=== PATIENT | female | born 1955 | race Caucasian/White ===

== ENCOUNTER 2019-04-06 12:08 | Emergency (ER) | payer SELFPAY ==
[2019-04-06 12:14] VITALS: BP 110/85
--- NOTE | 2019-04-06 12:18 | ER Document Report ---
ED Hand/Wrist Injury - General Chief Complaint: Wrist Pain Stated Complaint: FALL/WRIST PAIN Time Seen by Provider: 04/06/19 12:18 Primary Care Provider: HENRI IRAHETA DO [ACTIVE STAFF] - Follow up in 3-5 days (FOR ORTHOPEDIC FOLLOW UP) - HPI Notes: 63-year-old female to the emergency department with complaints of left wrist and hand pain after she fell just prior to arrival. She states that she was walking her dog when she slipped and fell onto a outstretched hand. She states that she has swelling to the back of the wrist and is very tender. She states any movement increases her pain. She states that the pain radiates up to her left elbow. She denies any other injuries. She did not hit her head. She did not have loss of consciousness. She did take a family members Percocet prior to ar rival which has not started to help with her pain. - Related Data Allergies/Adverse Reactions: No Known Allergies Allergy (Unverified 04/06/19 12:10) Past Medical History - General Information source: Patient, Relative - Social History Smoking Status: Never Smoker Frequency of alcohol use: None Drug Abuse: None Family History: Reviewed & Not Pertinent Review of Systems - Review of Systems Constitutional: denies: Chills, Fever EENT: No symptoms reported Cardiovascular: denies: Chest pain, Palpitations Respiratory: denies: Cough, Short of breath Gastrointestinal: denies: Abdominal pain, Diarrhea, Nausea, Vomiting Genitourinary: No symptoms reported Musculoskeletal: See HPI, Joint pain, Joint swelling - Left wrist, hand, elbow pain after fall. denies: Back pain Skin: No symptoms reported Hematologic/Lymphatic: No symptoms reported Neurological/Psychological: No symptoms reported -: Yes All other systems reviewed and negative Physical Exam - Vital signs Vitals: Temp Pulse Resp BP Pulse Ox 98 F 89 18 110/85 97 04/06/19 12:09 04/06/19 12:09 04/06/19 12:04/06/19 12:04/06/19 12:09 Interpretation: Normal - General General appearance: Appears well, Alert In distress: Mild Notes: Patient is guarding the left wrist and has mild pain distress. - HEENT Head: Normocephalic, Atraumatic Eyes: Normal Pupils: PERRL - Respiratory Respiratory status: No respiratory distress Chest status: Nontender Breath sounds: Normal Chest palpation: Normal - Cardiovascular Rhythm: Regular Heart sounds: Normal auscultation Murmur: No - Extremities Elbow: Tender - There is tenderness to palpation over the posterior left elbow with no edema, laceration, deformity, evidence of dislocation. Patient is able to move the left elbow against resistance with 5 out of 5 strength in flexion extension with pain. There is no tenderness to palpation over the left shoulder. Wrist: Tender - There is tenderness to palpation over the left dorsal wrist with noted edema and deformity to the distal radial aspect of the wrist. There is positive snuffbox tenderness on exam. Patient is only able to plant inspector minimally with her hand due to pain she has strength of 3 out of 5 with left hand plant inspector. Right hand plant inspector is 5 out of 5 in strength. Radial pulses are intact and equal. Compartments are soft., Deformity, Ecchymosis, Limited ROM Hand: Tender - There is tenderness to palpation over the left snuff box region and to the base of the thumb. There is no dorsal hand swelling or evidence for laceration. There is no gross deformity. Hip: Normal, Nontender Thigh: Normal, Nontender Knee: Normal, Nontender Ankle: Normal, Nontender Foot: Normal, Nontender - Neurological Neuro grossly intact: Yes Cognition: Normal Orientation: AAOx4 Endy Coma Scale Eye Opening: Spontaneous Endy Coma Scale Verbal: Oriented [place] Coma Scale Motor: Obeys Commands Endy Coma Scale Total: 15 Speech: Normal Motor strength normal: LUE, RUE, LLE, RLE Sensory: Normal - Psychological Associated symptoms: Normal affect, Normal mood - Skin Skin Temperature: Warm Skin Moisture: Dry Skin Color: Normal Course - Re-evaluation Re-evalutation: 04/06/19 13:40 Hand X-Ray 04/06/19 12:18 IMPRESSION: Nondisplaced fracture distal radius. Wrist X-Ray 04/06/19 12:18 IMPRESSION: Nondisplaced fracture distal radius. Elbow X-Ray 04/06/19 12:30 IMPRESSION: Nondisplaced fracture distal radius. Impression: Fall on outstretched hand injury with noted nondisplaced distal radial fracture. Did splint the patient here in the emergency department with the volar splint. We will have her follow with orthopedist early next week. We have placed patient in a sling and have encouraged her to rest, ice, elevate the wrist. Encouraged to keep the splint on without fail. Will write for pain medicine for home use. - Vital Signs Vital signs: Temp Pulse Resp BP Pulse Ox 98 F 89 18 110/85 97 04/06/19 12:04/06/19 12:09 04/06/19 12:09 04/06/19 12:04/06/19 12:09 Procedures - Immobilization Left Wrist Time completed: 13:18 Pre-Proc Neuro Vasc Exam: Normal Immobilizer type: Volar splint Performed by: PCT Post-Proc Neuro Vasc Exam: Normal Alignment checked and good: Yes Discharge - Discharge Clinical Impression: Left radial fracture Qualifiers: Encounter type: initial encounter Radius location: head Fracture type: closed Fracture alignment: nondisplaced Qualified Code(s): S52.125A - Nondisplaced fracture of head of left radius, initial encounter for closed fracture Fall Qualifiers: Encounter type: initial encounter Qualified Code(s): W19.XXXA - Unspecified fall, initial encounter Condition: Stable Disposition: HOME, SELF-CARE Instructions: Fractured Radius ([facility]) Additional Instructions: KEEP WRIST SPLINTED WITHOUT FAIL. TAKE PAIN MEDS PRESCRIBED. KEEP WRIST SPLINTED. MAY PLACE COLD PACK ON THE WRIST THREE TIMES A DAY FOR 20 MINUTES. DO NOT GET SPLINT WET. CALL ORTHOPEDIST ON WEDNESDAY WITHOUT FAIL FOR FOLLOW UP. RETURN IF WORSENING PAIN, FEVERS, COLOR CHANGE, OR ANY OTHER CONCERNS. Referrals: HENRI IRAHETA DO [ACTIVE STAFF] - Follow up in 3-5 days (FOR ORTHOPEDIC FOLLOW UP)
--- NOTE | 2019-04-06 13:02 | RADIOLOGY REPORT (SQ) ---
EXAM DESCRIPTION: HAND LEFT 3 VIEWS; WRIST LEFT 3 VIEWS; ELBOW LEFT AP/LATERAL COMPLETED DATE/TIME: 04/06/2019 12:48 pm REASON FOR STUDY: fall, wrist/hand injury; fall, FOOSH, elbow pain COMPARISON: None. EXAM PARAMETERS: NUMBER OF VIEWS: Seven views. TECHNIQUE: Two views left elbow, three views left wrist, three views left hand. LIMITATIONS: None. FINDINGS: MINERALIZATION: Osteopenia. BONES: Nondisplaced fracture of the distal radial metaphysis. JOINTS: Erosive arthropathy base of 1st metacarpal. SOFT TISSUES: No foreign body. OTHER: No other significant finding. IMPRESSION: Nondisplaced fracture distal radius. TECHNICAL DOCUMENTATION: JOB ID: [id number] [employer]- All Rights Reserved Reading location - IP/workstation name: [email or web address]
--- NOTE | 2019-04-06 13:02 | RADIOLOGY REPORT (SQ) ---
EXAM DESCRIPTION: HAND LEFT 3 VIEWS; WRIST LEFT 3 VIEWS; ELBOW LEFT AP/LATERAL COMPLETED DATE/TIME: 04/06/2019 12:48 pm REASON FOR STUDY: fall, wrist/hand injury; fall, FOOSH, elbow pain COMPARISON: None. EXAM PARAMETERS: NUMBER OF VIEWS: Seven views. TECHNIQUE: Two views left elbow, three views left wrist, three views left hand. LIMITATIONS: None. FINDINGS: MINERALIZATION: Osteopenia. BONES: Nondisplaced fracture of the distal radial metaphysis. JOINTS: Erosive arthropathy base of 1st metacarpal. SOFT TISSUES: No foreign body. OTHER: No other significant finding. IMPRESSION: Nondisplaced fracture distal radius. TECHNICAL DOCUMENTATION: JOB ID: [id number] [employer]- All Rights Reserved Reading location - IP/workstation name: [email or web address]
--- NOTE | 2019-04-06 13:02 | RADIOLOGY REPORT (SQ) ---
EXAM DESCRIPTION: HAND LEFT 3 VIEWS; WRIST LEFT 3 VIEWS; ELBOW LEFT AP/LATERAL COMPLETED DATE/TIME: 04/06/2019 12:48 pm REASON FOR STUDY: fall, wrist/hand injury; fall, FOOSH, elbow pain COMPARISON: None. EXAM PARAMETERS: NUMBER OF VIEWS: Seven views. TECHNIQUE: Two views left elbow, three views left wrist, three views left hand. LIMITATIONS: None. FINDINGS: MINERALIZATION: Osteopenia. BONES: Nondisplaced fracture of the distal radial metaphysis. JOINTS: Erosive arthropathy base of 1st metacarpal. SOFT TISSUES: No foreign body. OTHER: No other significant finding. IMPRESSION: Nondisplaced fracture distal radius. TECHNICAL DOCUMENTATION: JOB ID: [id number] [employer]- All Rights Reserved Reading location - IP/workstation name: [email or web address]
[2019-04-06] MEDS ORDERED: HYDROCODONE/ACETAMINOPHEN 5-325 MG (6 TAB/ER DISP) PO PRN (13:16)
[2019-04-06] MEDS ORDERED: OXYCODONE-ACETAMINOPHEN 5-325 MG TABLET PO ONE (13:28)
== END 2019-04-06 13:40 | disposition home or self-care (01) ==
LOC: ER 12:08
PROC: 2W3DX1Z Immobilization of Left Lower Arm using Splint (ICD-10-PCS; principal; 2019-04-06)
DX: S52.125A Nondisplaced fracture of head of left radius, initial encounter for closed fracture (principal); M25.532 Pain in left wrist; M79.642 Pain in left hand; M25.522 Pain in left elbow; W01.0XXA Fall on same level from slipping, tripping and stumbling without subsequent striking against object, initial encounter; Z79.899 Other long term (current) drug therapy
CPT/HCPCS: 99283

== ENCOUNTER 2019-05-07 18:07 | Observation (INO) | payer SELFPAY ==
[2019-05-07 18:42] LABS: ABSOLUTE EOSINOPHILS # (AUTO) 0.1 10^3/uL (0.0-0.6); ABSOLUTE LYMPHOCYTES (AUTO) 1.5 10^3/uL (0.5-4.7); ABSOLUTE MONOCYTES (AUTO) 0.4 10^3/uL (0.1-1.4); ABSOLUTE NEUT (AUTO) 3.3 10^3/uL (1.7-8.2); BASOPHILS % (AUTO) 0.9 % (0-2); EOSINOPHILS % (AUTO) 1.1 % (0-6); HEMATOCRIT 43.7 % (36.0-47.0); HEMOGLOBIN 14.4 g/dL (12.0-15.5); LYMPHOCYTES % (AUTO) 27.5 % (13-45); MEAN CORPUSCULAR VOLUME 91 fl (80-97); MONOCYTES % (AUTO) 8.3 % (3-13); PLATELET COUNT 310 10^3/uL (150-450); RED BLOOD COUNT 4.81 10^6/uL (3.72-5.28); RED CELL DISTRIBUTION WIDTH 14.7 % (11.5-14.0); SEGMENTED NEUTROPHILS % (AUTO) 62.2 % (42-78); TOTAL CELLS COUNTED % (AUTO) 100 %; WHITE BLOOD COUNT 5.4 10^3/uL (4.0-10.5)
[2019-05-07 18:59] LABS: ALBUMIN 4.3 g/dL (3.5-5.0); ALKALINE PHOSPHATASE 97 U/L (38-126); ANION GAP 8 (5-19); ASPARTATE AMINO TRANSFERASE 214 U/L (14-36); BILIRUBIN,DIRECT 0.1 mg/dL (0.0-0.4); BILIRUBIN,TOTAL 0.5 mg/dL (0.2-1.3); BLOOD UREA NITROGEN 10 mg/dL (7-20); CALCIUM 9.9 mg/dL (8.4-10.2); CARBON DIOXIDE 31 mmol/L (22-30); CHLORIDE 100 mmol/L (98-107); GLUCOSE 101 mg/dL (75-110); POTASSIUM 4.7 mmol/L (3.6-5.0); TOTAL PROTEIN 7.4 g/dL (6.3-8.2)
[2019-05-07] MEDS ORDERED: NORMAL SALINE 1000 ML 1,000 ML IV ONE (20:07)
[2019-05-07] MEDS ORDERED: ONDANSETRON HCL INJ/PF 4 MG/2 ML SDV IV ONE (20:08)
[2019-05-07] MEDS ORDERED: DEXAMETHASONE SOD PHOS INJ 10 MG/1 ML VIAL IV ONE (20:08)
[2019-05-07] MEDS ORDERED: DIPHENHYDRAMINE HCL 50 MG/ML VIAL IV ONE (20:08)
--- NOTE | 2019-05-07 21:02 | ER Document Report ---
ED General - General Chief Complaint: Headache Stated Complaint: HEADACHE, NAUSEA,VOMITING Time Seen by Provider: 05/07/19 19:55 TRAVEL OUTSIDE OF THE [place] IN LAST 30 DAYS: No - HPI Associated symptoms: denies: Fever Notes: This is a 63-year-old female who presents today with a complaint of a gradual onset headache that started yesterday. Patient describes a throbbing headache, frontal. She describes visual are of some stars and flashing lights prior to the onset of her headache. Headache is worse with light and noise exposure. Russell of the symptoms include nausea and vomiting. Patient states she has not been able to keep anything down today. She apparently had a syncopal episode today. She states she only roommate passing her head was hurting her so bad. Family found her on the floor. She denies any chest pain. She denies any fever or chills. She denies any rash. Patient states he typically does not get headaches. He denies any tick bites. She denies any neck pain. Describes her symptoms as moderate to severe. - Related Data Allergies/Adverse Reactions: No Known Allergies Allergy (Unverified 04/06/19 12:10) Past Medical History - Social History Smoking Status: Never Smoker Family History: Reviewed & Not Pertinent Patient has suicidal ideation: No Patient has homicidal ideation: No - Past Medical History Cardiac Medical History: Reports: Hx Hypertension Renal/ Medical History: Denies: Hx Peritoneal Dialysis Review of Systems - Review of Systems Cardiovascular: Syncope. denies: Chest pain, Palpitations Respiratory: denies: Cough Gastrointestinal: Nausea, Vomiting Neurological/Psychological: Headaches. denies: Weakness, Speech impairment, Numbness -: Yes All other systems reviewed and negative Physical Exam - Vital signs Vitals: Temp Resp BP Pulse Ox 97.8 F 18 191/97 H 99 05/07/19 18:25 05/07/19 18:25 05/07/19 18:25 05/07/19 18:25 - General General appearance: Alert In distress: None - Appears uncomfortable, in pain. - HEENT Eyes: Other - Pupils are equally reactive to light bilaterally. - Respiratory Respiratory status: No respiratory distress Chest status: Nontender Breath sounds: Normal Chest palpation: Normal - Cardiovascular Rhythm: Regular Heart sounds: Normal auscultation Murmur: No - Abdominal Inspection: Normal Distension: No distension Bowel sounds: Normal Tenderness: Nontender Organomegaly: No organomegaly - Neurological Neuro grossly intact: Yes Cognition: Normal Orientation: AAOx4 - There is no motor, sensory or cerebellar deficits. Nonfocal neurologic exam. GCS is 15. NIH stroke score is 0. Endy Coma Scale Eye Opening: Spontaneous Endy Coma Scale Verbal: Oriented Endy Coma Scale Motor: Obeys Commands [place] Coma Scale Total: 15 Speech: Normal Motor strength normal: LUE, RUE, LLE, RLE Sensory: Normal - Skin Skin Temperature: Warm Skin Moisture: Dry Skin Color: Normal Course - Re-evaluation Re-evalutation: 05/07/19 21:00 Clinical picture is suggestive of a migraine headache. However, given syncope, elevated blood pressure, I will get a head CT to rule out intracranial bleed or other intracranial process. I believe syncope is likely vasovagal secondary to her pain. We will give her a migraine cocktail with exception of NSAIDs until I get head CT. EKG shows normal sinus rhythm at 74 bpm. Normal axis. Normal intervals. No acute injury pattern. 05/07/19 23:11 Patient reevaluated. She feels much better. Labs and CT reviewed. CT findings abnormal. I discussed CT findings with patient and family. Patient will need to be admitted for further evaluation. Patient's care discussed with Dr. Son. Will admit. - Vital Signs Vital signs: Temp Pulse Resp BP Pulse Ox 97.8 F 14 174/91 H 97 05/07/19 18:25 05/07/19 23:01 05/07/19 23:01 05/07/19 23:01 - Laboratory Result Diagrams: 05/07/19 18:27 05/07/19 18:27 Laboratory results interpreted by me: 05/07/19 05/07/19 18:27 18:27 RDW 14.7 H Carbon Dioxide 31 H AST 214 H Discharge - Discharge Clinical Impression: Abnormal head CT Acute headache Qualifiers: Headache type: unspecified Intractability: not intractable Qualified Code(s): R51 - Headache Syncope Qualifiers: Syncope type: unspecified Qualified Code(s): R55 - Syncope and collapse Condition: Stable Disposition: ADMITTED OBSERVATION Admitting Provider: Lazarus (Hospitalist) Unit Admitted: Medical Floor
[2019-05-07] MEDS: FENTANYL CITRATE INJ/PF 100 MCG/2 ML AMPUL IV PRN ×3 (21:05→23:21)
[2019-05-07] MEDS ORDERED: FENTANYL CITRATE INJ/PF 100 MCG/2 ML AMPUL IV ONE (21:35)
--- NOTE | 2019-05-07 22:10 | RADIOLOGY REPORT (SQ) ---
EXAM DESCRIPTION: CT HEAD WITHOUT IV CONTRAST COMPLETED DATE/TME: 05/07/2019 20:06 CLINICAL HISTORY: 63 years, Female, headache, syncope COMPARISON: EXAM DESCRIPTION: CLINICAL HISTORY: headache, syncope COMPARISON: None Available TECHNIQUE: Contiguous axial CT images of the head were obtained. Coronal and sagittal reconstructions were created from the axial data. This exam was performed according to our departmental dose-optimization program, which includes automated exposure control, adjustment of the mA and/or kV according to patient size and/or use of iterative reconstruction technique. FINDINGS: There is poorly defined decreased attenuation in the right parieto-occipital region involving the deep white matter and subcortical white matter and portions of the cortex. Possibilities include ischemia or neoplasm or inflammatory process and MRI is recommended to include contrast for further evaluation if the clinical picture is unclear. There is also poorly defined decreased attenuation much smaller in volume involving the left occipital lobe deep white matter subcortical white matter and cortex. Poorly defined foci of decreased attenuation elsewhere do not exert significant mass effect on surrounding structures and are likely sequela of prior insult, most likely on the basis of small vessel disease. No other acute abnormality. No acute abnormalities of the bones is seen. IMPRESSION: Findings are most concerning for neoplasm but ischemia or inflammation are certainly also possible and follow-up MRI is recommended for further evaluation if the clinical picture is unclear. TECHNIQUE: Images stored on PACS. All CT scanners at this facility use dose modulation, iterative reconstruction, and/or weight based dosing when appropriate to reduce radiation dose to as low as reasonably achievable (ALARA). [facility]: Dose Right [facility]: CareDose [facility]: Dose Right [facility]: Teradose 4D [facility]: [place] LIMITATIONS: None. FINDINGS: IMPRESSION: TECHNICAL DOCUMENTATION: Quality ID # [id number]: Final reports with documentation of one or more dose reduction techniques (e.g., Automated exposure control, adjustment of the mA and/or kV according to patient size, use of iterative reconstruction technique) copyright 2011 [employer]- All Rights Reserved
--- NOTE | 2019-05-07 22:39 | EKG REPORT ---
SEVERITY:- NORMAL ECG - SINUS RHYTHM : Confirmed by: Katiana Beckwith MD 07-May-2019 22:38:48
[2019-05-07] MEDS ORDERED: MAG HYDROX/AL HYDROX/SIMETH SUSP 30 ML UDCUP PO PRN (23:38)
[2019-05-07] MEDS ORDERED: MAGNESIUM HYDROXIDE SUSP 30 ML UDCUP PO PRN (23:38)
[2019-05-07] MEDS ORDERED: TEMAZEPAM 15 MG CAPSULE PO PRN (23:38)
[2019-05-07] MEDS ORDERED: NALBUPHINE HCL INJ 10 MG/1 ML AMPULE IV PRN (23:43)
[2019-05-07] MEDS ORDERED: ACETAMINOPHEN 325 MG TABLET PO PRN (23:43)
[2019-05-07] MEDS ORDERED: ACETAMINOPHEN 650 MG SUPP.RECT PR PRN (23:43)
[2019-05-07] MEDS ORDERED: PROCHLORPERAZINE EDISYLATE INJ 10 MG/2 ML VIAL IM PRN (23:45)
[2019-05-07] MEDS ORDERED: KETOROLAC TROMETHAMINE INJ/PF 30 MG/1 ML SDV IV PRN (23:51)
[2019-05-08] MEDS ORDERED: NALBUPHINE HCL INJ 10 MG/1 ML AMPULE IV PRN (00:34)
[2019-05-08 00:42] LABS: FREE T3 4.35 pg/mL (2.77-5.27); FREE T4 (FREE THYROXINE) 1.04 ng/dL (0.78-2.19)
[2019-05-08 00:56] LABS: THYROID STIMULATING HORMONE 1.92 uIU/mL (0.47-4.68)
[2019-05-08 01:29] LABS: CREATINE KINASE MB 0.23 ng/mL (<4.55)
[2019-05-08 01:31] LABS: TROPONIN I < 0.012 ng/mL
[2019-05-08] MEDS: FAMOTIDINE 20 MG TABLET PO SCH ×3 (01:33→23:03)
[2019-05-08] MEDS: DEXTROSE 5%-LACTATED RINGERS 1,000 ML IV PRN ×4 (01:33→23:25)
[2019-05-08] MEDS: DEXAMETHASONE SOD PHOS INJ 10 MG/1 ML VIAL IV PRN ×2 (01:33→18:43)
[2019-05-08] MEDS: NALBUPHINE HCL INJ 10 MG/1 ML AMPULE IV PRN ×2 (01:34→06:28)
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
[2019-05-08] MEDS: HEPARIN SOD (PORCINE) 5,000 UNIT/ML 1 ML VIAL SUBCUT SCH ×3 (06:28→23:02)
[2019-05-08 07:15] LABS: CREATINE KINASE < 20 U/L (30-135)
[2019-05-08 07:30] LABS: CREATINE KINASE MB < 0.22 ng/mL (<4.55); TROPONIN I < 0.012 ng/mL
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
[2019-05-08] MEDS: HYDRALAZINE HCL INJ/PF 20 MG/1 ML SDV IV PRN (09:10)
[2019-05-08] MEDS: MORPHINE SULFATE 10 MG/ML INJ IV PRN ×3 (09:20→23:09)
--- NOTE | 2019-05-08 10:45 | RADIOLOGY REPORT (SQ) ---
EXAM DESCRIPTION: MRI HEAD COMBO COMPLETED DATE/TIME: 05/08/2019 10:05 am REASON FOR STUDY: Abnormal CT scan COMPARISON: CT brain 05/07/2019 TECHNIQUE: Multiplanar imaging includes noncontrasted T1, T2, FLAIR, diffusion with ADC map and post gadolinium contrast T1 sequences. Images stored on PACS. CONTRAST TYPE AND DOSE: 15 mL Dotarem. RENAL FUNCTION: Not indicated. ACR Type II contrast agent associated with few, if any, unconfounded cases of NSF LIMITATIONS: None. FINDINGS: ANATOMY: No developmental anomalies. Normal vascular flow voids. Pituitary fossa normal. CSF SPACES: Normal in size and contour. No hemorrhage. CEREBRUM: Abnormal decreased T1 and increased FLAIR/T2 signal is present in the right posterior tempo ral and occipital cortex and subcortical white matter. There is mild local mass effect with sulcal e ffacement. No abnormal contrast enhancement. No restricted diffusion. This finding could reflect e doc related to cortical vein thrombosis. Tumefactive MS is possible. Edema related to posterior re versible encephalopathy is possible although considered unlikely given its asymmetric nature. Tumor/ gliosis is possible although considered less likely given patient's acute neurologic exchange mechanic the last 3 days. These findings were discussed with QUENTIN Butts, 1000 hours 05/08/2019. Remainder of the cerebrum demonstrates few punctate foci of increased FLAIR/T2 signal along perivascu lar spaces over the bifrontal and biparietal convexities on FLAIR images. POSTERIOR FOSSA: No signal alteration. No hemorrhage. No edema, masses, or mass effect. Internal awais tory canals, cerebellopontine angles, mastoids normal. No enhancing lesions. No abnormal enhancement post contrast. DIFFUSION IMAGING: Negative for acute or subacute infarction. ORBITS: No masses. Post left cataract surgery. PARANASAL SINUSES: No fluid levels. Mucosa normal. OTHER: No other significant finding. IMPRESSION: Right posterior temporal/occipital cortical and subcortical white matter signal abnormal ities without altered diffusion. Differential is venous infarct vs tumefactive MS vs asymmetric post erior reversible encephalopathy EVIDENCE OF ACUTE STROKE: Possible atypical venous infarct. COMMENT: Findings discussed with QUENTIN Butts TECHNICAL DOCUMENTATION: JOB ID: [id number] [employer]- All Rights Reserved Reading location - IP/workstation name: [email or web address]
[2019-05-08] MEDS: AMLODIPINE BESYLATE 5 MG TABLET PO SCH (12:19)
[2019-05-08] MEDS: DOCUSATE SODIUM 100 MG CAPSULE PO SCH ×2 (12:20→18:41)
[2019-05-08 15:09] LABS: CREATINE KINASE MB 0.3 ng/mL (<4.55); TROPONIN I 0.016 ng/mL
[2019-05-08] MEDS: HYDROMORPHONE HCL INJ/PF 2 MG/ML AMPULE IV PRN (18:42)
--- NOTE | 2019-05-08 18:45 | PDOC TRANSFER SUMMARY ---
General Admission Date/PCP: 05/07/19 23:36 Resuscitation Status: Full Code - Transfer Diagnosis (1) Abnormal CT scan of head Is this a current diagnosis for this admission?: Yes (2) Frontal headache Is this a current diagnosis for this admission?: Yes (3) Hypertension Is this a current diagnosis for this admission?: Yes (5) Episode of syncope Is this a current diagnosis for this admission?: Yes (6) Coronary artery disease Is this a current diagnosis for this admission?: Yes - Transfer Medications Home Medications: Cholecalciferol (Vitamin D3) [Vitamin D3 1000 Unit Tablet] 1,000 unit PO DAILY 05/08/19 Ferrous Sulfate [Feosol 325 mg Tablet] 325 mg PO DAILY 05/08/19 L.acidoph,Paracasei, B.lactis [Probiotic] 1 cap PO DAILY 05/08/19 Transfer Medications: Current Medications Acetaminophen (Tylenol 325 Mg Tablet) 650 mg PO Q4HP PRN PRN Reason: For headache, pain or fever Stop: 06/06/19 23:42 Acetaminophen (Tylenol 650 Mg Supp) 650 mg MO Q4HP PRN PRN Reason: For headache, pain or fever Stop: 06/06/19 23:42 Al Hydrox/Mg Hydrox/Simethicone (Maalox Plus Susp 30 Udcup) 30 ml PO Q6HP PRN PRN Reason: HEARTBURN Stop: 06/06/19 23:37 Amlodipine Besylate (Norvasc 5 Mg Tablet) 5 mg PO DAILY ELOY Stop: 06/07/19 09:59 Last Admin: 05/08/19 12:19 Dose: 5 mg Documented by: Dexamethasone Sodium Phosphate (Decadron Inj 10 Mg/1 Ml Vial) 5 mg IV Q6HP PRN PRN Reason: FOR HEADACHE Last Admin: 05/08/19 01:33 Dose: 5 mg Documented by: Docusate Sodium (Colace 100 Mg Capsule) 100 mg PO BID ELOY Stop: 06/07/19 09:59 Last Admin: 05/08/19 12:20 Dose: 100 mg Documented by: Famotidine (Pepcid 20 Mg Tablet) 20 mg PO Q12 ELOY Stop: 06/06/19 23:44 Last Admin: 05/08/19 12:20 Dose: 20 mg Documented by: Heparin Sodium (Porcine) (Heparin Inj 5,000 Units/Ml 1 Ml Vial) 5,000 unit SUBCUT Q8 ELOY Stop: 06/07/19 05:59 Last Admin: 05/08/19 14:41 Dose: 5,000 unit Documented by: Hydralazine HCl (Apresoline Inj/Pf 20 Mg/1 Ml Sdv) 10 mg IV Q4HP PRN PRN Reason: Give For Sbp > 160 / Dbp > 90 Stop: 06/07/19 08:53 Last Admin: 05/08/19 09:10 Dose: 10 mg Documented by: Hydromorphone HCl (Dilaudid Inj/Pf 2 Mg/Ml Ampule) 1 mg IV Q6HP PRN PRN Reason: FOR PAIN Stop: 05/15/19 17:30 Dextrose/Lactated Ringer's (D5lr 1000 Ml Iv Soln) 1,000 mls @ 167 mls/hr IV CONTINUOUS PRN PRN Reason: THIS MED IS NOT "PRN" Stop: 06/06/19 23:37 Last Admin: 05/08/19 17:09 Dose: 167 mls/hr Documented by: Magnesium Hydroxide (Milk Of Magnesia 30 Ml Udcup) 30 ml PO DAILYP PRN PRN Reason: FOR CONSTIPATION Stop: 06/06/19 23:37 Morphine Sulfate (Morphine 10 Mg/Ml Inj) 2 mg IV Q4HP PRN PRN Reason: FOR PAIN Stop: 05/15/19 08:50 Last Admin: 05/08/19 14:38 Dose: 2 mg Documented by: Ondansetron HCl (Zofran Inj/Pf 4 Mg/2 Ml Sdv) 4 mg IV Q6HP PRN PRN Reason: FOR NAUSEA/VOMITING Stop: 06/07/19 18:27 Phenytoin Sodium (Dilantin Inj/Pf 100 Mg/2 Ml Sdv) 100 mg IV Q8 ELOY Stop: 06/07/19 21:59 Phenytoin Sodium (Dilantin Inj/Pf 250 Mg/5 Ml Sdv) 1,000 mg IV NOW ONE Stop: 05/08/19 19:16 Prochlorperazine Edisylate (Compazine Inj 10 Mg/2 Ml Vial) 10 mg IM Q6HP PRN PRN Reason: FOR HEADACHE Sodium Chloride (Saline Flush 2.5 Ml Monoject Prefil Syrin) 2.5 ml IV Q8 ELOY Stop: 06/07/19 05:59 Last Admin: 05/08/19 14:39 Dose: 2.5 ml Documented by: Temazepam (Restoril 15 Mg Capsule) 30 mg PO HSP PRN PRN Reason: SLEEP OR INSOMNIA Stop: 05/14/19 23:37 - Allergies Allergies/Adverse Reactions: No Known Allergies Allergy (Unverified 04/06/19 12:10) Hospital Course Hospital Course: 05/08/2019 Patient was admitted last night through the emergency room around 2300 hrs. Patient states that on Wednesday, 1 day ago she developed a headache rather suddenly. He states it is located behind her eyes and goes back to the back of her head. She states it persisted all day Wednesday and Wednesday and that is when she came to the emergency room Wednesday night. Patient also states that she was n auseated and had vomiting on Wednesday and Wednesday as well. She also states that she saw flashing lights which she describes as "fireworks". She denies any nuchal rigidity, denies any recent travels out of the state or out of the country. She denies any recent illnesses such as colds or flus or viruses. He denies any recent fevers, and/or tick bites.. She states that she has pretension and had a cardiac cath done 4 years ago as well that was normal. Does state that she has been told she had "3 small heart attacks past. [place] patient's blood pressure was elevated 191/97 his morning it was still high at 180/87 she has been afebrile this whole time.. CBC is normal showing no leukocytosis, does have elevated liver functions TSH is normal. CT head scan done last night in the emergency was abnormal and recommended MRI. MRI of the brain today with gadolinium is also grossly abnormal showing edema in 2 separate locations, however no obvious neoplasm. Differential would include ischemic etiology, as neoplasm, versus infection. Patient would benefit from a higher level of care where neurology/ neurosurgery is available. Dr. Lerma has graciously agreed to accept the patient on the hospitalist service and consult the appropriate providers. Patient will be maintained on her IV dexamethasone, IV Dilantin, Apresoline as needed, Dilaudid Physical Exam Vital Signs: Temp Pulse Resp BP Pulse Ox 98.3 F 103 H 21 H 171/86 H 95 05/08/19 14:00 05/08/19 14:00 05/08/19 14:00 05/08/19 14:00 05/08/19 14:00 Intake & Output 05/07/19 05/08/19 05/09/19 06:59 06:59 06:59 Intake Total 1000 2000 Output Total 900 Balance 100 2000 Weight 68.7 kg General appearance: PRESENT: mild distress, other - Secondary to headache Neck exam: ABSENT: carotid bruit, JVD, lymphadenopathy, thyromegaly Respiratory exam: PRESENT: clear to auscultation bulmaro. ABSENT: rales, rhonchi, wheezes Cardiovascular exam: PRESENT: RRR. ABSENT: diastolic murmur, rubs, systolic murmur Neurological exam: PRESENT: alert, awake, oriented to person, oriented to place, oriented to time, oriented to situation, CN II-XII grossly intact. ABSENT: motor sensory deficit Psychiatric exam: PRESENT: appropriate affect, normal mood. ABSENT: homicidal ideation, suicidal ideation Results Laboratory Results: 05/07/19 18:27 05/07/19 18:27 05/07/19 05/07/19 05/07/19 18:27 18:27 18:27 WBC 5.4 RBC 4.81 Hgb 14.4 Hct 43.7 MCV 91 MCH 30.0 MCHC 33.0 RDW 14.7 H Plt Count 310 Seg Neutrophils % 62.2 Sodium 139.2 Potassium 4.7 Chloride 100 Carbon Dioxide 31 H Anion Gap 8 BUN 10 Creatinine 0.63 Est GFR ( Amer) > 60 Glucose 101 Calcium 9.9 Magnesium Total Bilirubin 0.5 AST 214 H Alkaline Phosphatase 97 Total Protein 7.4 Albumin 4.3 TSH 1.92 Free T4 1.04 Free T3 pg/mL 4.35 05/08/19 06:40 WBC RBC Hgb Hct MCV MCH MCHC RDW Plt Count Seg Neutrophils % Sodium Potassium Chloride Carbon Dioxide Anion Gap BUN Creatinine Est GFR ( Amer) Glucose Calcium Magnesium 1.8 Total Bilirubin AST Alkaline Phosphatase Total Protein Albumin TSH Free T4 Free T3 pg/mL 05/07/19 05/08/19 05/08/19 18:27 00:36 00:36 Creatine Kinase 24 L CK-MB (CK-2) 0.23 Troponin I < 0.012 < 0.012 05/08/19 05/08/19 05/08/19 06:40 06:40 13:46 Creatine Kinase < 20 L 47 CK-MB (CK-2) < 0.22 Troponin I < 0.012 05/08/19 13:46 Creatine Kinase CK-MB (CK-2) 0.30 Troponin I 0.016 Impressions: Head CT 05/07/19 20:06 IMPRESSION: Findings are most concerning for neoplasm but ischemia or inflammation are certainly also possible and follow-up MRI is recommended for further evaluation if the clinical picture is unclear. TECHNIQUE: Images stored on PACS. All CT scanners at this facility use dose modulation, iterative reconstruction, and/or weight based dosing when appropriate to reduce radiation dose to as low as reasonably achievable (ALARA). [facility]: Dose Right [facility]: CareDose [facility]: Dose Right [facility]: Teradose 4D [facility]: [employer] LIMITATIONS: None. FINDINGS: IMPRESSION: TECHNICAL DOCUMENTATION: Quality ID # [id number]: Final reports with documentation of one or more dose reduction techniques (e.g., Automated exposure control, adjustment of the mA and/or kV according to patient size, use of iterative reconstruction technique) copyright 2011 [employer]- All Rights Reserved Head MRI 05/08/19 00:00 IMPRESSION: Right posterior temporal/occipital cortical and subcortical white matter signal abnormalities without altered diffusion. Differential is venous infarct vs tumefactive MS vs asymmetric posterior reversible encephalopathy EVIDENCE OF ACUTE STROKE: Possible atypical venous infarct. Plan Discharge Plan: Patient has been accepted at [facility] by Dr. Lerma, hospitalist, who will consult neurology.. She is medically stable at this time for transfer. Patient was given a loading dose of Dilantin the thousand milligrams IV and then 100 mg IV every 8 hours. . She will continue her Apresoline IV 4 hours as needed for blood pressure. She was also started on Norvasc 5 mg daily. Patient's blood pressure was tried to be in the range of 160 systolic and any diastolic. Did not want to drop her blood pressure down too low fear of lack of perfusion. patient had no relief from her headache with morphine and therefore Dilaudid was ordered milligram IV every 4 hours as needed. She is stable to go by [facility] ground transport. Patient's , sister, and father have all been spoken to concerning her transfer. They as well as the pat ient are in agreement for transfer Time Spent: Greater than 30 Minutes
[2019-05-08] MEDS ORDERED: PHENYTOIN SODIUM INJ/PF 250 MG/5 ML SDV IV ONE (19:00)
[2019-05-08] MEDS ORDERED: PHENYTOIN SODIUM INJ/PF 100 MG/2 ML SDV IV ONE (19:00)
[2019-05-08] MEDS: PHENYTOIN SODIUM INJ/PF 100 MG/2 ML SDV IV SCH (22:59)
[2019-05-08] MEDS: ONDANSETRON HCL INJ/PF 4 MG/2 ML SDV IV PRN (23:01)
[2019-05-08] MEDS ORDERED: PHENYTOIN SODIUM INJ/PF 250 MG/5 ML SDV ONE (23:19)
[2019-05-09] MEDS: HYDROMORPHONE HCL INJ/PF 2 MG/ML AMPULE IV PRN ×5 (02:12→20:14)
[2019-05-09] MEDS: HEPARIN SOD (PORCINE) 5,000 UNIT/ML 1 ML VIAL SUBCUT SCH ×3 (05:53→21:29)
[2019-05-09] MEDS: PHENYTOIN SODIUM INJ/PF 100 MG/2 ML SDV IV SCH ×3 (05:53→21:29)
[2019-05-09] MEDS: DEXTROSE 5%-LACTATED RINGERS 1,000 ML IV PRN ×2 (07:38→12:30)
[2019-05-09] MEDS: DEXAMETHASONE SOD PHOS INJ 10 MG/1 ML VIAL IV PRN (07:42)
[2019-05-09] MEDS: FAMOTIDINE 20 MG TABLET PO SCH ×2 (10:35→21:25)
[2019-05-09] MEDS: DOCUSATE SODIUM 100 MG CAPSULE PO SCH ×2 (10:36→17:00)
[2019-05-09] MEDS: AMLODIPINE BESYLATE 5 MG TABLET PO SCH (10:36)
[2019-05-09] MEDS: DEXAMETHASONE SOD PHOSPHATE INJ 4 MG/1 ML VIAL IV SCH ×2 (15:38→21:26)
--- NOTE | 2019-05-09 19:24 | PDOC PROGRESS REPORT ---
Subjective Progress Note for:: 05/09/19 Subjective:: The patient is a 63-year-old female with a past medical history of CAD, AR, hypertension, PAD, chronic back pain who was admitted 05/07/2019 for severe headache and subsequently found to have right posterior temporal and occipital cortical and subcu cortical abnormalities; infarct versus tumefactive MS versus asymmetric posterior reversible encephalopathy. Previous provider has arranged for transfer to [facility] with neurology consultation. She is awaiting room assignment/transfer at this time. Patient was seen on morning rounds with multiple family members present. She is found sitting up in bed on room air. She is clearly photophobic and p honophobic. She reports continued frontal headache; relieved by IV medications, however notes that her relief is very short-lived (approximately 30 to 45 minutes of pain relief). She does report nausea and occasional blurred vision but without emesis. She denies fever, chills, chest pain, palpitations, dyspnea, abdominal pain, nausea, vomiting, diarrhea, paresthesias and focal deficits. They have no new questions or concerns at this time. No concerns per nursing. Reason For Visit: HEADACHE,NAUSEA AND VOMITING,SYNCOPAL EPISODE Physical Exam Vital Signs: Temp Pulse Resp BP Pulse Ox 97.7 F 82 15 151/83 H 100 05/09/19 16:44 05/09/19 16:44 05/09/19 03:04 05/09/19 16:44 05/09/19 16:44 Intake & Output 05/08/19 05/09/19 05/10/19 06:59 06:59 06:59 Intake Total 1000 4650 1567 Output Total 900 625 500 Balance 100 4025 1067 Weight 68.7 kg 67.5 kg General appearance: PRESENT: no acute distress, cooperative, well-developed, well-nourished Head exam: PRESENT: atraumatic, normocephalic Eye exam: PRESENT: conjunctiva pink, EOMI, PERRLA. ABSENT: scleral icterus Ear exam: PRESENT: normal external ear exam Mouth exam: PRESENT: moist, tongue midline Neck exam: ABSENT: carotid bruit, JVD, lymphadenopathy, thyromegaly Respiratory exam: PRESENT: clear to auscultation bulmaro, symmetrical, unlabored. ABSENT: rales, rhonchi, wheezes Cardiovascular exam: PRESENT: RRR, +S1, +S2. ABSENT: diastolic murmur, rubs, systolic murmur Pulses: PRESENT: normal dorsalis pedis pul Vascular exam: PRESENT: normal capillary refill GI/Abdominal exam: PRESENT: normal bowel sounds, soft. ABSENT: distended, guarding, mass, organolmegaly, rebound, tenderness Rectal exam: PRESENT: deferred Extremities exam: PRESENT: full ROM. ABSENT: calf tenderness, clubbing, pedal edema Neurological exam: PRESENT: alert, awake, oriented to person, oriented to place, oriented to time, oriented to situation, CN II-XII grossly intact. ABSENT: motor sensory deficit Psychiatric exam: PRESENT: appropriate affect, normal mood. ABSENT: homicidal ideation, suicidal ideation Skin exam: PRESENT: dry, intact, warm. ABSENT: cyanosis, rash Results Laboratory Results: 05/07/19 18:27 05/07/19 18:27 05/07/19 05/08/19 05/08/19 18:27 00:36 00:36 Creatine Kinase 24 L CK-MB (CK-2) 0.23 Troponin I < 0.012 < 0.012 05/08/19 05/08/19 05/08/19 06:40 06:40 13:46 Creatine Kinase < 20 L 47 CK-MB (CK-2) < 0.22 Troponin I < 0.012 05/08/19 13:46 Creatine Kinase CK-MB (CK-2) 0.30 Troponin I 0.016 Impressions: Head CT 05/07/19 20:06 IMPRESSION: Findings are most concerning for neoplasm but ischemia or inflammation are certainly also possible and follow-up MRI is recommended for further evaluation if the clinical picture is unclear. TECHNIQUE: Images stored on PACS. All CT scanners at this facility use dose modulation, iterative reconstruction, and/or weight based dosing when appropriate to reduce radiation dose to as low as reasonably achievable (ALARA). [facility]: Dose Right [facility]: CareDose [facility]: Dose Right [facility]: Teradose 4D [facility]: [employer] LIMITATIONS: None. FINDINGS: IMPRESSION: TECHNICAL DOCUMENTATION: Quality ID # 436: Final reports with documentation of one or more dose reduction techniques (e.g., Automated exposure control, adjustment of the mA and/or kV according to patient size, use of iterative reconstruction technique) copyright 2011 [employer]- All Rights Reserved Head MRI 05/08/19 00:00 IMPRESSION: Right posterior temporal/occipital cortical and subcortical white matter signal abnormalities without altered diffusion. Differential is venous infarct vs tumefactive MS vs asymmetric posterior reversible encephalopathy EVIDENCE OF ACUTE STROKE: Possible atypical venous infarct. Assessment and Plan - Diagnosis (1) Abnormal MRI of head Is this a current diagnosis for this admission?: Yes Plan: MRI revealed right posterior temporal and occipital cortical and subcu cortical abnormalities; infarct versus tumefactive MS versus asymmetric posterior reversible encephalopathy. The previous provider has arranged for transfer to [facility]; currently awaiting bed assignment and transfer. Continue IV Dilantin. Continue analgesics as needed; have increased Dilaudid 2 mg every 3 hours. Continue Tylenol. Antiemetics as needed. Start IV dexamethasone. Nonpharmacological interventions; head of bed elevated, low light, sound, visitor stimulation. Neuro checks every 6 hours. Management of hypertension as below. (2) Frontal headache Is this a current diagnosis for this admission?: Yes Plan: Secondary to #1. Evaluation management as above. (3) Coronary artery disease Is this a current diagnosis for this admission?: Yes Plan: Troponins negative x4. Continue monitor on continuous cardiac telemetry. Holding aspirin secondary to #1. (4) Hypertension Qualifiers: Hypertension type: essential hypertension Qualified Code(s): I10 - Essential (primary) hypertension Is this a current diagnosis for this admission?: Yes Plan: The patient is not on home antihypertensive therapy. Blood pressures remain elevated. Will increase amlodipine to 10 mg daily. Cardiac diet. (5) Episode of syncope Qualifiers: Syncope type: unspecified Qualified Code(s): R55 - Syncope and collapse Is this a current diagnosis for this admission?: Yes Plan: Likely secondary to #1. Evaluation management as above. Fall precautions. - Time Time Spent with patient: 25-34 minutes Medications reviewed and adjusted accordingly: Yes Anticipated discharge: [facility]: when bed available
[2019-05-10] MEDS: HYDROMORPHONE HCL INJ/PF 2 MG/ML AMPULE IV PRN ×7 (00:47→18:59)
[2019-05-10] MEDS: ONDANSETRON HCL INJ/PF 4 MG/2 ML SDV IV PRN (04:12)
[2019-05-10 04:41] LABS: HEMATOCRIT 39.5 % (36.0-47.0); MEAN CORPUSCULAR HEMOGLOBIN 29.9 pg (27.0-33.4); MEAN CORPUSCULAR HGB CONC 32.9 g/dL (32.0-36.0); MEAN CORPUSCULAR VOLUME 91 fl (80-97); PLATELET COUNT 269 10^3/uL (150-450); RED BLOOD COUNT 4.35 10^6/uL (3.72-5.28)
[2019-05-10 05:05] LABS: ANION GAP 9 (5-19); BLOOD UREA NITROGEN 12 mg/dL (7-20); CALCIUM 9.2 mg/dL (8.4-10.2); CARBON DIOXIDE 31 mmol/L (22-30); CHLORIDE 100 mmol/L (98-107); GLUCOSE 142 mg/dL (75-110); POTASSIUM 3.9 mmol/L (3.6-5.0)
[2019-05-10 05:11] LABS: C-REACTIVE PROTEIN < 5.0 mg/L (<10.0)
[2019-05-10 05:18] LABS: ERYTHROCYTE SEDIMENTATION RATE 16 mm/hr (0-30)
[2019-05-10] MEDS: DEXTROSE 5%-LACTATED RINGERS 1,000 ML IV PRN ×2 (06:14→13:28)
[2019-05-10] MEDS: DEXAMETHASONE SOD PHOSPHATE INJ 4 MG/1 ML VIAL IV SCH ×3 (06:15→22:02)
[2019-05-10] MEDS: PHENYTOIN SODIUM INJ/PF 100 MG/2 ML SDV IV SCH ×3 (06:20→22:01)
[2019-05-10] MEDS: HEPARIN SOD (PORCINE) 5,000 UNIT/ML 1 ML VIAL SUBCUT SCH ×3 (06:25→22:00)
[2019-05-10] MEDS ORDERED: FERROUS SULFATE 325 MG TABLET PO SCH (10:00)
[2019-05-10] MEDS ORDERED: (PENDING PHARMACY ID) (L.Acidoph,Paracasei, B.Lactis [Probiotic] 1 CAP) PO SCH (10:00)
[2019-05-10] MEDS ORDERED: AMLODIPINE BESYLATE 5 MG TABLET PO SCH (10:00)
[2019-05-10] MEDS ORDERED: LACTOBACILLUS ACIDOPHILUS 250 MG TAB PO SCH (10:00)
[2019-05-10] MEDS: HYDRALAZINE HCL INJ/PF 20 MG/1 ML SDV IV PRN (10:17)
[2019-05-10] MEDS: FAMOTIDINE 20 MG TABLET PO SCH ×2 (10:20→21:59)
[2019-05-10] MEDS: DOCUSATE SODIUM 100 MG CAPSULE PO SCH ×2 (10:21→18:14)
[2019-05-10] MEDS ORDERED: KETOROLAC TROMETHAMINE INJ/PF 30 MG/1 ML SDV IM ONE (14:30)
[2019-05-10] MEDS ORDERED: LOPERAMIDE HCL 2 MG CAPSULE PO PRN (14:46)
--- NOTE | 2019-05-10 14:58 | PDOC PROGRESS REPORT ---
Subjective Progress Note for:: 05/10/19 Subjective:: No adverse events overnight. Blood pressure still intermittently high. She still complaining of a headache. No fevers or nuchal rigidity. She says that the Dilaudid helps some but it wears off quickly and it makes her feel bad overall. Reason For Visit: HEADACHE,NAUSEA AND VOMITING,SYNCOPAL EPISODE Physical Exam Vital Signs: Temp Pulse Resp BP Pulse Ox 98.1 F 95 16 179/65 H 95 05/10/19 00:53 05/10/19 14:00 05/10/19 00:53 05/10/19 08:40 05/10/19 08:40 Intake & Output 05/09/19 05/10/19 05/11/19 06:59 06:59 06:59 Intake Total 4650 2807 1000 Output Total 625 500 Balance 4025 2307 1000 Weight 67.5 kg 71.7 kg General appearance: PRESENT: no acute distress, cooperative, disheveled Eye exam: PRESENT: PERRLA. ABSENT: nystagmus Neck exam: PRESENT: full ROM. ABSENT: lymphadenopathy, meningismus, tenderness Respiratory exam: PRESENT: clear to auscultation bulmaro, symmetrical, unlabored. ABSENT: accessory muscle use, chest wall tenderness, crackles, prolonged expiratory phas, rhonchi, tachypnea, wheezes Cardiovascular exam: PRESENT: RRR, +S1, +S2 Pulses: PRESENT: normal carotid pulses Vascular exam: PRESENT: normal capillary refill GI/Abdominal exam: PRESENT: normal bowel sounds, soft. ABSENT: distended, guarding, rebound, tenderness Extremities exam: ABSENT: clubbing, pedal edema Musculoskeletal exam: PRESENT: normal inspection. ABSENT: deformity Neurological exam: PRESENT: alert, awake, oriented to person, oriented to place, oriented to time, oriented to situation Psychiatric exam: PRESENT: appropriate affect, normal mood Skin exam: PRESENT: dry, warm Results Laboratory Results: 05/10/19 04:09 05/10/19 04:09 05/10/19 05/10/19 04:09 04:09 WBC 11.0 H D RBC 4.35 Hgb 13.0 Hct 39.5 MCV 91 MCH 29.9 MCHC 32.9 RDW 15.0 H Plt Count 269 Sodium 140.3 Potassium 3.9 Chloride 100 Carbon Dioxide 31 H Anion Gap 9 BUN 12 Creatinine 0.45 L Est GFR ( Amer) > 60 Glucose 142 H Calcium 9.2 C-Reactive Protein < 5.0 05/07/19 05/08/19 05/08/19 18:27 00:36 00:36 Creatine Kinase 24 L CK-MB (CK-2) 0.23 Troponin I < 0.012 < 0.012 05/08/19 05/08/19 05/08/19 06:40 06:40 13:46 Creatine Kinase < 20 L 47 CK-MB (CK-2) < 0.22 Troponin I < 0.012 05/08/19 13:46 Creatine Kinase CK-MB (CK-2) 0.30 Troponin I 0.016 Impressions: Head CT 05/07/19 20:06 IMPRESSION: Findings are most concerning for neoplasm but ischemia or inflammation are certainly also possible and follow-up MRI is recommended for further evaluation if the clinical picture is unclear. TECHNIQUE: Images stored on PACS. All CT scanners at this facility use dose modulation, iterative reconstruction, and/or weight based dosing when appropriate to reduce radiation dose to as low as reasonably achievable (ALARA). [facility]: Dose Right [facility]: CareDose [facility]: Dose Right [facility]: Teradose 4D [facility]: [employer] LIMITATIONS: None. FINDINGS: IMPRESSION: TECHNICAL DOCUMENTATION: Quality ID # [id number]: Final reports with documentation of one or more dose reduction techniques (e.g., Automated exposure control, adjustment of the mA and/or kV according to patient size, use of iterative reconstruction technique) copyright 2011 [employer]- All Rights Reserved Head MRI 05/08/19 00:00 IMPRESSION: Right posterior temporal/occipital cortical and subcortical white matter signal abnormalities without altered diffusion. Differential is venous infarct vs tumefactive MS vs asymmetric posterior reversible encephalopathy EVIDENCE OF ACUTE STROKE: Possible atypical venous infarct. Assessment and Plan - Diagnosis (1) Cerebral edema Is this a current diagnosis for this admission?: Yes Plan: There is a few different strains things on the differential for this, and this is obviously the cause of her headache, as she is on the transfer list for [facility]. We got her on some Decadron as well as some Dilantin in case this is a cerebral venous thrombosis. I am going to give her a dose of Compazine and Toradol together to see if this will help with her headache. - Time Time Spent with patient: 15-24 minutes
[2019-05-10] MEDS ORDERED: IBUPROFEN 600 MG TABLET PO ONE (21:30)
[2019-05-10 22:21] VITALS: BP 130/64
--- NOTE | 2019-05-11 18:41 | Left Against Medical Advice ---
Against Medical Advice Admission Date/Time: 05/07/19 23:36 Primary Care Provider: Date of Patient Emigration: 05/11/19 - Diagnosis: (1) Cerebral edema Is this a current diagnosis for this admission?: Yes - Summary: Summary: Please see Admission and Progress Notes as well. TAMMI MENDOZA is a 63 F, who LEFT AGAINST MEDICAL ADVICE. The Patient was admitted on 05/07/19 23:36.
== END 2019-05-11 01:22 | disposition left against medical advice (07) ==
LOC: ER 18:07 → EH 23:36 → 5 05-08 01:10
PROVIDERS: ADMIT Emergency Medicine; ATTEND Emergency Medicine
DX: G93.6 Cerebral edema (principal); R93.0 Abnormal findings on diagnostic imaging of skull and head, not elsewhere classified; R51 Headache; R55 Syncope and collapse; I25.10 Atherosclerotic heart disease of native coronary artery without angina pectoris; R11.2 Nausea with vomiting, unspecified; R79.89 Other specified abnormal findings of blood chemistry; R41.3 Other amnesia; H53.149 Visual discomfort, unspecified; H53.8 Other visual disturbances; H53.459 Other localized visual field defect, unspecified eye; I10 Essential (primary) hypertension; I25.2 Old myocardial infarction; Z91.81 History of falling; M54.9 Dorsalgia, unspecified; G89.29 Other chronic pain; I73.9 Peripheral vascular disease, unspecified; Z79.899 Other long term (current) drug therapy; Z87.891 Personal history of nicotine dependence; Z98.84 Bariatric surgery status; Z82.0 Family history of epilepsy and other diseases of the nervous system; Z82.3 Family history of stroke; Z87.11 Personal history of peptic ulcer disease; Z82.49 Family history of ischemic heart disease and other diseases of the circulatory system
CPT/HCPCS: 96376; 99285; 96361; 96374; 96375; 36415 ×3; 84439; 82553; 82550; 83735; 84443; 85025; 85027; 85652; 86140; 80048; 80053; 84484 ×2; 84481; 70553; 70450; 93005; 93010; G0378 ×5; A9576; J1644 ×3; J1100 ×5; J1200; J3010; J0360 ×2; J1885; J3490 ×4; J2270; J2300; J1170 ×3; J1165 ×4; J0780; J2405 ×3; J7121 ×3; J7030